=== PATIENT | male | born 1985 | race Caucasian/White ===

== ENCOUNTER 2017-08-31 16:09 | Emergency (ER) | payer OTHER ==
[~2017-08-31] VITALS: Ht 170.2 cm; Wt 72.6 kg
[2017-08-31 16:20] VITALS: BP 135/72
[2017-08-31] MEDS ORDERED: IV NORMAL SALINE 1,000ML 1,000 ML IV SCH (18:07)
--- NOTE | 2017-08-31 18:07 | ED.ADGEN ---
Past History Past Medical History: No Pertinent History, Kidney Stones Past Surgical History: Other Alcohol Use: Occasionally Drug Use: None Adult General Chief Complaint Chief Complaint " I had this back pain... I though it was my kidney stones..but now every thing hurts..." HPI HPI Patient is a 31 year old male who presents with above hx and complaints of myalgia, arthralgia, malaise, fever, and chills. Patient denies any history of travel or specific ill contacts. Patient normally healthy. No history of immunosuppression. Patient follows with Dr. Graves. Review of Systems Review of Systems Constitutional: Complaints of fever and chills [] Eyes: Denies change in visual acuity, redness, or eye pain [] HENT: History of nasal congestion and sore throat [] Respiratory: Denies cough or shortness of breath [] Cardiovascular: No additional information not addressed in HPI [] GI: Denies abdominal pain, nausea, vomiting, bloody stools or diarrhea [] : Denies dysuria or hematuria [] Musculoskeletal: History of back pain and joint pain [] Integument: Denies rash or skin lesions [] Neurologic: Denies headache, focal weakness or sensory changes [] Endocrine: Denies polyuria or polydipsia [] All other systems were reviewed and found to be within normal limits, except as documented in this note. Family History Family History Noncontributory Current Medications Current Medications Current Medications Medications (Trade) Dose Ordered Sig/Marcus Start Time Stop Time Status Last Admin Dose Admin Acetaminophen (Tylenol) 1,000 mg 1X ONCE 08/31/17 18:30 08/31/17 18:31 DC 08/31/17 18:46 1,000 MG Ondansetron HCl (Zofran) 4 mg STK-MED ONCE 08/31/17 18:41 08/31/17 18:42 DC Oseltamivir Phosphate (Tamiflu) 75 mg STK-MED ONCE 08/31/17 20:36 08/31/17 20:37 DC Sodium Chloride 1,000 ml @ 1,000 mls/hr Q1H 08/31/17 18:07 08/31/17 19:06 DC 08/31/17 18:46 1,000 MLS/HR See nursing for home medications Allergies Allergies Allergies Coded Allergies Type Severity Reaction Last Updated Verified No Known Drug Allergies 09/10/14 No Physical Exam Physical Exam Constitutional: Well developed, well nourished, in moderately acute distress, non-toxic appearance. [] HENT: Normocephalic, atraumatic, bilateral external ears normal, oropharynx moist, injected pharynx no oral exudates, nose rhinorrhea swollen turbinates Eyes: PERRLA, EOMI, conjunctiva normal, no discharge. [] Neck: Normal range of motion, no tenderness, supple, no stridor. [] Cardiovascular: Tachycardia Heart rate regular rhythm, no murmur [] Lungs & Thorax: Bilateral breath sounds equal at apex with scattered wheezes on auscultation [] Abdomen: Bowel sounds normal, soft, no tenderness, no masses, no pulsatile masses. [] Skin: Warm, dry, no erythema, no rash. [] Back: No tenderness, no CVA tenderness. [] Extremities: No tenderness, no cyanosis, no clubbing, ROM intact, no edema. [] Neurologic: Alert and oriented X 3, normal motor function, normal sensory function, no focal deficits noted. [] Psychologic: Affect anxious, judgement normal, mood normal. [] Current Patient Data Vital Signs Vital Signs Date Time Temp Pulse Resp B/P (MAP) Pulse Ox O2 Delivery O2 Flow Rate FiO2 08/31/17 16:20 101.1 111 22 97 Room Air Lab Results Laboratory Tests Test 08/31/17 18:40 08/31/17 19:12 White Blood Count 4.6 x10^3/uL (4.0-11.0) Red Blood Count 4.76 x10^6/uL (4.30-5.70) Hemoglobin 14.2 g/dL (13.0-17.5) Hematocrit 42.6 % (39.0-53.0) Mean Corpuscular Volume 89 fL (79-100) Mean Corpuscular Hemoglobin 30 pg (25-35) Mean Corpuscular Hemoglobin Concent 33 g/dL (31-37) Red Cell Distribution Width 12.6 % (11.5-14.5) Platelet Count 185 x10^3/uL (140-400) Neutrophils (%) (Auto) 74 % (31-73) H Lymphocytes (%) (Auto) 12 % (24-48) L Monocytes (%) (Auto) 14 % (0-9) H Eosinophils (%) (Auto) 0 % (0-3) Basophils (%) (Auto) 0 % (0-3) Neutrophils # (Auto) 3.4 x10^3uL (1.8-7.7) Lymphocytes # (Auto) 0.6 x10^3/uL (1.0-4.8) L Monocytes # (Auto) 0.6 x10^3/uL (0.0-1.1) Eosinophils # (Auto) 0.0 x10^3/uL (0.0-0.7) Basophils # (Auto) 0.0 x10^3/uL (0.0-0.2) Urine Collection Type Unknown Urine Color Yellow Urine Clarity Clear Urine pH 8.0 Urine Specific Henry 1.020 Urine Protein 30 mg/dl (NEG-TRACE) Urine Glucose (UA) Neg mg/dL (NEG) Urine Ketones (Stick) 80 mg/dL (NEG) Urine Blood Neg (NEG) Urine Nitrite Neg (NEG) Urine Bilirubin Neg (NEG) Urine Urobilinogen Dipstick 4 mg/dL (0.2 mg/dL) Urine Leukocyte Esterase Neg (NEG) Urine RBC Occ /HPF (0-2) Urine WBC Rare /HPF (0-4) Urine Squamous Epithelial Cells Few /LPF Urine Bacteria 0 /HPF (0-FEW) Urine Mucus Slight /LPF Sodium Level 136 mmol/L (136-145) Potassium Level 4.2 mmol/L (3.5-5.1) Chloride Level 98 mmol/L (98-107) Carbon Dioxide Level 29 mmol/L (21-32) Anion Gap 9 (6-14) Blood Urea Nitrogen 8 mg/dL (8-26) Creatinine 0.8 mg/dL (0.7-1.3) Estimated GFR (Cockcroft-Gault) 114.3 BUN/Creatinine Ratio 10 (6-20) Glucose Level 103 mg/dL (70-99) H Calcium Level 8.8 mg/dL (8.5-10.1) Total Bilirubin 1.2 mg/dL (0.2-1.0) H Direct Bilirubin 0.3 mg/dL (0.0-0.2) H Aspartate Amino Transferase (AST) 16 U/L (15-37) Alanine Aminotransferase (ALT) 19 U/L (16-63) Alkaline Phosphatase 51 U/L (46-116) Total Protein 7.1 g/dL (6.4-8.2) Albumin 4.0 g/dL (3.4-5.0) Albumin/Globulin Ratio 1.3 (1.0-1.7) Influenza Type A (Rapid) Positive (NEGATIVE) Influenza Type B (Rapid) Negative (NEGATIVE) Group A Streptococcus Rapid Negative (NEGATIVE) EKG EKG [] Radiology/Procedures Radiology/Procedures [] Course & Med Decision Making Course & Med Decision Making Pertinent Labs and Imaging studies reviewed. (See chart for details). Patient push fluids. Patient take [id number] Tylenol and ibuprofen for pain. Patient take Zofran as needed for nausea and vomiting. Patient take Tamiflu 75 mg twice day 5 days. Patient follow-up primary care. [] Final Impression Final Impression 1. Fever[] 2. Viral syndrome 3. Influenza A 4. Elevated bili Problems: Dragon Disclaimer Dragon Disclaimer This electronic medical record was generated, in whole or in part, using a voice recognition dictation system. JENNIFER JAVIER MD Aug 31, 2017 18:07
[2017-08-31] MEDS ORDERED: ACETAMINOPHEN 500 MG TABLET PO ONE (18:30)
[2017-08-31] MEDS ORDERED: ONDANSETRON PF 4 MG/2 ML VIAL. ONE (18:41)
[2017-08-31 19:02] LABS: BASO % 0 % (0-3); EOS % 0 % (0-3); HEMATOCRIT 42.6 % (39.0-53.0); HEMOGLOBIN 14.2 g/dL (13.0-17.5); LYMPH # 0.6 x10^3/uL (1.0-4.8); LYMPH % 12 % (24-48); MEAN CORPUSCULAR HEMOGLOBIN 30 pg (25-35); MEAN CORPUSCULAR HGB CONC 33 g/dL (31-37); MEAN CORPUSCULAR VOLUME 89 fL (79-100); MONO # 0.6 x10^3/uL (0.0-1.1); MONO % 14 % (0-9); NEUT # 3.4 x10^3uL (1.8-7.7); NEUT % 74 % (31-73); PLATELET COUNT 185 x10^3/uL (140-400); RED BLOOD COUNT 4.76 x10^6/uL (4.30-5.70); RED CELL DISTRIBUTION WIDTH 12.6 % (11.5-14.5); WHITE BLOOD COUNT 4.6 x10^3/uL (4.0-11.0)
[2017-08-31 19:16] LABS: ALBUMIN/GLOBULIN RATIO 1.3 (1.0-1.7); CALCIUM 8.8 mg/dL (8.5-10.1); CREATININE 0.8 mg/dL (0.7-1.3); DIRECT BILIRUBIN 0.3 mg/dL (0.0-0.2); GFR 114.3; POTASSIUM 4.2 mmol/L (3.5-5.1); TOTAL BILIRUBIN 1.2 mg/dL (0.2-1.0); TOTAL PROTEIN 7.1 g/dL (6.4-8.2)
[2017-08-31 19:46] LABS: BILIRUBIN,URINE NEG (NEG); CLARITY,URINE CLEAR; COLOR,URINE YELLOW; GLUCOSE,URINE NEG (NEG)
[2017-08-31 19:47] LABS: BACTERIA,URINE 0 /HPF (0-FEW); NITRITE,URINE NEG (NEG); RBC,URINE OCC /HPF (0-2); SQUAMOUS EPITHELIAL CELL,UR FEW /LPF; UROBILINOGEN,URINE 4 mg/dL (0.2 mg/dL); WBC,URINE RARE /HPF (0-4)
[2017-08-31 20:17] LABS: INFLUENZA A PATIENT POSITIVE (NEGATIVE); INFLUENZA B PATIENT NEGATIVE (NEGATIVE)
[2017-08-31] MEDS ORDERED: HYDR-79 PO (20:25)
[2017-08-31] MEDS ORDERED: ONDA8TAB12 PO (20:25)
[2017-08-31] MEDS ORDERED: OSEL75CA PO (20:25)
[2017-08-31] MEDS ORDERED: OSELTAMIVIR 75 MG CAPSULE PO ONE ×2 (20:36→20:45)
== END 2017-08-31 20:26 | disposition home or self-care (01) ==
LOC: ER 16:09
DX: J09.X2 Influenza due to identified novel influenza A virus with other respiratory manifestations (principal); E80.7 Disorder of bilirubin metabolism, unspecified; B34.9 Viral infection, unspecified; Z87.442 Personal history of urinary calculi
CPT/HCPCS: 36415; 80053; 81001; 82248; 85025; 87070; 87804; 87880; 96360; 96361; 99285-25; J7030